=== PATIENT | female | born 1990 | race African-American/Black ===

== ENCOUNTER 2016-12-25 07:25 | Emergency (ER) | payer OTHER ==
[2016-12-25 08:55] LABS: Bilirubin Negative (Negative); Blood, Urine Negative (Negative); Glucose, Urine (Dipstick) Negative (Negative); Nitrite Negative (Negative); Protein, Urine (Dipstick) 100 mg/dL (Neg-Trace)
[2016-12-25] MEDS ORDERED: Ondansetron HCl/PF 4 MG/2 ML Vial ONE (08:55)
[2016-12-25 08:57] LABS: Bacteria/HPF None Seen HPF (None Seen); Squamous Epithelial 0-3 HPF (0-3)
[2016-12-25 09:01] LABS: #Lymphocytes 0.8 thou/uL (1.20-3.40); #Monocytes 0.1 thou/uL (0.11-0.59); %Basophils 0.1 % (0.0-1.0); %Eosinophils 0.1 % (0.0-10.0); %Lymphocytes 9.2 % (21.0-51.0); %Monocytes 0.9 % (0.0-10.0); Hematocrit 36.4 % (36.0-47.0); Mean Platelet Volume 8.3 fL (7.4-10.4); Red Blood Cell (RBC) Count 4.25 mill/uL (4.20-5.40)
[2016-12-25 09:05] LABS: Ketone, Urine Large mg/dL (Negative)
[2016-12-25 09:13] LABS: RBC/HPF 0-3 HPF (0-3); WBC/HPF 0-3 HPF (0-3)
[2016-12-25 09:22] LABS: ALT (SGPT) 73 U/L (8-55); AST (SGOT) 79 U/L (5-34); Alkaline Phosphatase 61 U/L (40-150); Anion Gap 15 mmol/L (10-20); BUN (Urea Nitrogen) 9 mg/dL (7.0-18.7); Bilirubin, Total 1.9 mg/dL (0.2-1.2); Calc. Creatinine Clearance 0 mL/min (70-130); Calcium 9.9 mg/dL (7.8-10.44); Carbon Dioxide 20 mmol/L (22-29); Chloride 106 mmol/L (98-107); Estimated GFR-MDRD Greater than 90; Globulin 3.5 g/dL (2.4-3.5); Lipase 6 U/L (8-78); Protein, Total 7.7 g/dL (6.0-8.3)
== END 2016-12-25 10:35 | disposition home or self-care (01) ==
LOC: EEVIPCON 07:25 → ERS 07:25
DX: R11.2 Nausea with vomiting, unspecified (principal); D50.0 Iron deficiency anemia secondary to blood loss (chronic); E28.2 Polycystic ovarian syndrome; Z79.891 Long term (current) use of opiate analgesic; Z79.899 Other long term (current) drug therapy
CPT/HCPCS: 36415; 80053; 81003; 81015; 81025; 83690; 85025; 96361; 96374; J2405

== ENCOUNTER 2017-01-31 07:39 | Outpatient (CLI) | payer OTHER ==
--- NOTE | 2017-01-31 15:00 | NM ---
HEPATOBILIARY SCAN: Date: 01/31/17 HISTORY: Epigastric pain, sleeve gastrectomy. No gallstones on ultrasound of 10/15/16. RADIOPHARMACEUTICAL: 5.2 mCi technetium-99m mebrofenin injected intravenously. FINDINGS: There is good tracer extraction by the liver with prompt excretion of the biliary tract and small bow el loops, and normal filling of the gallbladder. Gallbladder positioning and emptying was also evalua jenni on the cine imaging. The calculated gallbladder ejection fraction following an oral fatty meal me asures 6%. IMPRESSION: Gallbladder dyskinesia/chronic acalculous cholecystitis. POS: [facility]
== END 2017-01-31 07:40 | disposition home or self-care (01) ==
LOC: NM 07:39
PROVIDERS: ATTEND Internal Medicine Gastroenterology
DX: R10.13 Epigastric pain (principal); Z90.3 Acquired absence of stomach [part of]; K82.8 Other specified diseases of gallbladder; K81.1 Chronic cholecystitis
CPT/HCPCS: 78227; A9537

== ENCOUNTER 2017-03-07 12:05 | Outpatient (CLI) | payer OTHER ==
[2017-03-07 13:14] LABS: #Basophils 0.1 thou/uL (0.0-0.2); #Monocytes 0.1 thou/uL (0.11-0.59); #Neutrophils 3.4 thou/uL (1.40-6.50); %Basophils 1.3 % (0.0-1.0); %Eosinophils 0.2 % (0.0-10.0); %Lymphocytes 35.2 % (21.0-51.0); %Monocytes 2.1 % (0.0-10.0); Hematocrit 35.2 % (36.0-47.0); Mean Platelet Volume 7.2 fL (7.4-10.4); Red Blood Cell (RBC) Count 4.05 mill/uL (4.20-5.40); White Blood Cell (WBC) Count 5.6 thou/uL (4.8-10.8)
[2017-03-07 13:29] LABS: ALT (SGPT) 19 U/L (8-55); AST (SGOT) 15 U/L (5-34); Alkaline Phosphatase 50 U/L (40-150); Anion Gap 9 mmol/L (10-20); BUN (Urea Nitrogen) 15 mg/dL (7.0-18.7); Bilirubin, Total 0.5 mg/dL (0.2-1.2); Calc. Creatinine Clearance 0 mL/min (70-130); Calcium 9.9 mg/dL (7.8-10.44); Carbon Dioxide 28 mmol/L (22-29); Chloride 107 mmol/L (98-107); Estimated GFR-MDRD Greater than 90; Globulin 3.1 g/dL (2.4-3.5); Protein, Total 7.3 g/dL (6.0-8.3)
== END 2017-03-07 12:06 | disposition home or self-care (01) ==
LOC: LABBT 12:05
PROVIDERS: ATTEND Surgery
DX: Z01.812 Encounter for preprocedural laboratory examination (principal); K81.1 Chronic cholecystitis
CPT/HCPCS: 80053; 85025

== ENCOUNTER 2017-03-11 07:07 | Day surgery (SDC) | payer OTHER ==
[2017-03-07 12:34] VITALS: BMI 21.6
[2017-03-11] MEDS ORDERED: cefOXitin Sodium 2 GM, Syringe 1 ML in Sterile Water 10 ML SLOW IVP SCH (07:45)
[2017-03-11] MEDS ORDERED: Fentanyl 100 MCG/2 ML VIAL ONE ×3 (07:46→10:20)
[2017-03-11] MEDS ORDERED: Midazolam HCl 2 mg/2 ml Vial ONE ×2 (07:46→08:02)
[2017-03-11] MEDS ORDERED: Iothalamate Meglumine 60% 50 ML VIAL FS ONE (07:50)
[2017-03-11] MEDS ORDERED: Bupivacaine/Epinephrine 0.25% 30 ML VIAL ONE (07:50)
[2017-03-11 08:42] LABS: ALT (SGPT) Less than 7 U/L (8-55); AST (SGOT) 5 U/L (5-34); Alkaline Phosphatase 12 U/L (40-150); Bilirubin, Direct 0.1 mg/dL (0.1-0.3); Bilirubin, Total Less than 0.2 mg/dL (0.2-1.2); Protein, Total 1.6 g/dL (6.0-8.3)
--- NOTE | 2017-03-11 09:55 | OP ---
PREOPERATIVE DIAGNOSIS: Chronic cholecystitis with elevated liver function. SURGEON: Master Álvarez M.D. PROCEDURE PERFORMED: Laparoscopic cholecystectomy with intraoperative cholangiogram and wedge liver biopsy. INDICATIONS: This is a 27-year-old female, who has lost a lot of weight and she developed recurrent intermittent right upper quadrant pain after eating, especially after fatty foods with nausea. Ultra sound negative. HIDA scan showed a low ejection fraction and pain was reproduced with stimulation. She had elevated liver functions. FINDINGS: She had a long very thin cystic duct. The liver looked healthy. Cholangiogram was negati ve. PROCEDURE IN DETAIL: After informed consent was obtained, the patient was taken to the operating guille m and given general endotracheal anesthesia. She was placed in the supine position. Her abdomen was prepped and draped in the usual fashion. Local anesthesia infiltrated subcutaneously and deep. A s ubumbilical incision was performed, subcu divided sharply. The fascia grasped and two stay sutures o f 0 Vicryl placed to either side of midline. Midline incised. Digital palpation revealed no local a dhesions. A blunt 10/12 mm trocar inserted. Pneumoperitoneum was created to a pressure of 15 mmHg. A 0 degree laparoscope inserted. Under direct vision, three 5 mm ports placed subcostally. Gallbla dder grasped and advanced superiorly. The peritoneum was opened, using blunt and sharp dissection an d the cystic artery, cystic duct, and critical view were dissected out. A clip was placed at the bas e of the gallbladder and an incision made in the cystic duct and an Arrow cholangiocatheter inserted. Intraoperative cholangiogram showed good flow into the duodenum, no filling defects, no dilatation of the common hepatic duct. The duct was triply ligated with Hemoclips and divided. The artery trip ly ligated with Hemoclips and divided. The gallbladder was removed from its fossa utilizing electroc autery, removed from the abdomen through the umbilical port and then utilizing Metzenbaum scissors, a wedge was taken off the edge of the right lobe of the liver, sent to pathology for further analysis. Hemostasis was achieved with electrocautery. Wound irrigated and irrigation fluid removed. Trocar s and retractors removed. The fascia closed with interrupted 0 Vicryl suture. The skin closed with interrupted 4-0 Vicryl. Dermabond applied. The patient tolerated the procedure well and transferred to recovery in good condition. Sponge and needle count verified correct x2.
--- NOTE | 2017-03-11 11:58 | RAD ---
TWO IMAGES FROM AN INTRAOPERATIVE CHOLANGIOMGRAM: Total fluoroscopic time: .02 seconds. Total exposure: .0463 mGy*cm^2. FINDINGS: Submitted image demonstrates some spill of contrast from the region of the cannulated cystic duct. Th ere is contrast filling the cystic duct portions of the common hepatic duct and common bile duct with out filling defects. Contrast is seen flowing into the duodenum. IMPRESSION: No visible filling defect seen within the visualized cystic duct, common hepatic duct, or common bile duct. POS: [facility]
[2017-03-11] MEDS ORDERED: HYDROcodone/Acetaminophen 5/325 mg Tablet ONE (12:36)
[2017-03-11] MEDS ORDERED: Ketorolac Tromethamine 30 MG/ML VIAL ONE (15:26)
[2017-03-11] MEDS ORDERED: Ondansetron HCl/PF 4 MG/2 ML Vial ONE (15:26)
[2017-03-11] MEDS ORDERED: diphenhydrAMINE 50 MG/ML VIAL ONE (15:26)
[2017-03-11] MEDS ORDERED: Metoclopramide HCl 10 MG/2 ML VIAL ONE (15:26)
[2017-03-11] MEDS ORDERED: Lidocaine 1% PF 5 ML VIAL ONE (15:26)
[2017-03-11] MEDS ORDERED: Propofol 200 MG/20 ML VIAL ONE (15:26)
[2017-03-11] MEDS ORDERED: Glycopyrrolate 0.2 MG/ML 5 ML SYRINGE ONE (15:26)
[2017-03-11] MEDS ORDERED: Dexamethasone 20 MG/5 ML VIAL ONE (15:26)
== END 2017-03-11 14:10 | disposition home or self-care (01) ==
LOC: SDC 07:07
PROVIDERS: ATTEND Surgery
PROC: 0FB14ZX Excision of Right Lobe Liver, Percutaneous Endoscopic Approach, Diagnostic (ICD-10-PCS; principal; 2017-03-11)
PROC: 0FT44ZZ Resection of Gallbladder, Percutaneous Endoscopic Approach (ICD-10-PCS; principal; 2017-03-11)
PROC: BF13YZZ Fluoroscopy of Gallbladder and Bile Ducts using Other Contrast (ICD-10-PCS; principal; 2017-03-11)
DX: K80.10 Calculus of gallbladder with chronic cholecystitis without obstruction (principal); R94.5 Abnormal results of liver function studies; E28.2 Polycystic ovarian syndrome; R73.03 Prediabetes; D64.9 Anemia, unspecified; Z79.3 Long term (current) use of hormonal contraceptives; Z79.899 Other long term (current) drug therapy; Z98.84 Bariatric surgery status; Z98.890 Other specified postprocedural states
CPT/HCPCS: 47532; 76000; 80076; 88304; 88307; 88313; 96374; A4216; J0131; J0694; J1100; J1200; J1885; J2001; J2250; J2405; J2704; J2765; J3010; Q9961